=== PATIENT | male | born 1965 | race Caucasian/White ===

== ENCOUNTER 2016-08-29 09:36 | Day surgery (SDC) | payer OTHER ==
[~2016-08-29 09:36] MED LIST: RINGERS SOLUTION,LACTATED 1,000 ML IV PRN
--- OUTSIDE RECORDS SUMMARY | 2016-08-29 09:40 | XMS REPORT | Continuity of Care Document ---
:1965 Author Organization [facility] ([facility]) [place] [address] [place] [address] Phone [phone] Care Team Providers Name Role Phone Unavailable Primary Care Provider Unavailable Source Comments This disclosure is being made pursuant to the Care Everywhere program, applicable federal and state laws, and may not contain all informaitonavailable regarding this patient.[facility] ([facility]) Active Allergies and Adverse Reactions Not on File Current Medications Not on file Active Problems Not on file Social History Tobacco Use Types Packs/Day Years Used Date Never Assessed Plan of Care Health Maintenance Due Date Last Done Comments HCV Screening 1965 Hepatitis B Vaccine (1 of 3 - Primary Series) 1965 Tdap Vaccine 02/23/1976 Lipid Disorder Screening 1983 MMR Vaccine 1983 Td Vaccine 1983 Colonoscopy 2015 Prostate Cancer Screening 2015 Influenza Vaccine: Seasonal (#1) 01/16/2016 Results from Last 3 Months Not on file
[2016-08-29 12:10] VITALS: BP 145/84
--- NOTE | 2016-08-29 12:56 | OR ---
Operative Report - Dictated Report Narrative: OPERATIVE REPORT DATE OF OPERATION: 08/29/2016 PREOPERATIVE DIAGNOSIS: No prior dedicated colon studies. Family history of colon cancer. Episode of rectal bleeding and hemorrhoids. POSTOPERATIVE DIAGNOSIS: Small area of inflammatory change at 20 cm ( pathology pending). Very capacious and redundant colon OPERATION: Colonoscopy with biopsy at 20 cm SURGEON: Bob Lindsey MD ANESTHESIA: DAVID Fisher CRNA INDICATIONS FOR PROCEDURE: The patient is a 51-year-old male referred by Dr. Cox. His aunt had colon cancer at age 50. The patient has had no previous dedicated colon studies. He has had several episodes of rectal bleeding and hemorrhoids with hard stool. FINDINGS: Very capacious redundant colon with 3 mm area of inflammatory change at 20 cm (pathology pending) NARRATIVE OF PROCEDURE: The patient was identified in the holding area, and prior to the administration of anesthetic, a multidisciplinary timeout was observed. With the patient in the left lateral position and after the administration of intravenous sedation, the perineum was inspected. There was no evidence of pilonidal disease or skin breakdown. The external appearance of the anus was normal. Sphincter tone was good. The flexible fiberoptic colonoscope was inserted into the rectum which was insufflated with air. The rectal mucosa and submucosal vascular pattern appeared normal, the prep was seen to be complete. The scope was advanced proximally where at 20 cm a small area of inflammation was encountered. This was biopsied and then thoroughly destroyed with electrocautery. The site was seen to be complete and hemostatic. The scope was then advanced proximally through very capacious and redundant colon. Initially the scope reached the hepatic flexure however could not be advanced further proximally. The scope was withdrawn and readvanced using standard reduction maneuvers until the scope could be negotiated around the hepatic flexure to the apex of the cecum. The mucosa at this level appeared normal. The scope was then slowly withdrawn in a circular fashion so that all aspects of colonic mucosa were inspected. The colon was very capacious in character and redundant in course. The haustral architecture appeared well preserved throughout with no evidence of external compression. The mucosa and submucosal vascular pattern appeared normal, specifically there was no gross evidence to suggest colitis or inflammatory bowel disease and no AV malformations were seen. No diverticulosis was demonstrated. Aside from the area of inflammation at 20 cm, no polyps were encountered. The scope was gradually withdrawn to the level of the rectum. As much insufflated air as possible was removed. The scope was withdrawn from the patient and the procedure terminated. The patient tolerated the anesthetic and procedure well without complication and was transferred back to the ambulatory surgery area awake and in stable condition. The patient remained stable throughout a period of postoperative observation. He denied abdominal discomfort, was able to tolerate by mouth intake, and was up without assistance. I shared the operative findings with the patient and he was given copies of the photographs which appear in the medical record. He was discharged home with instructions not to engage in hazardous activity today, but may resume normal activity tomorrow, and advance diet as tolerated. He is to continue those medications as listed in the history and physical exam. I made arrangements to contact him with the biopsy report and will make additional recommendations for treatment and follow-up based upon that result. He has had some success with the use of Benefiber, and I suggested he continue this to obtain a more frequent stooling pattern was softer stool. Reviewed and electronically signed
== END 2016-08-29 09:37 | disposition home or self-care (01) ==
LOC: AMB 09:36
PROVIDERS: ATTEND Surgery
PROC: 0DBE8ZX Excision of Large Intestine, Via Natural or Artificial Opening Endoscopic, Diagnostic (ICD-10-PCS; principal; 2016-08-29 11:00)
DX: Z12.11 Encounter for screening for malignant neoplasm of colon (principal); K52.9 Noninfective gastroenteritis and colitis, unspecified; I10 Essential (primary) hypertension; J44.9 Chronic obstructive pulmonary disease, unspecified; J45.909 Unspecified asthma, uncomplicated; F41.1 Generalized anxiety disorder; F32.9 Major depressive disorder, single episode, unspecified; K62.5 Hemorrhage of anus and rectum; Z80.0 Family history of malignant neoplasm of digestive organs; Z87.891 Personal history of nicotine dependence; Z68.32 Body mass index [BMI] 32.0-32.9, adult